=== PATIENT | male | born 1980 | race Two or more races ===

== ENCOUNTER 2019-08-05 16:49 | Emergency (ER) | payer SELFPAY ==
[~2019-08-05] VITALS: Ht 167.6 cm; Wt 70.0 kg
[2019-08-05] MEDS ORDERED: ONDANSETRON 2MG/ML, 2ML ONE (17:41)
[2019-08-05] MEDS ORDERED: MORPHINE SULFATE 4 MG/ML, 1ML ONE (17:41)
[2019-08-05] MEDS ORDERED: MORPHINE SULFATE 4 MG/ML, 1ML IVPush PRN (18:00)
[2019-08-05] MEDS ORDERED: SODIUM CHLORIDE FLUSH 10ML SYR IVF ONE (18:00)
[2019-08-05] MEDS ORDERED: SODIUM CHLORIDE 0.9% 1,000ML IVBOLUS ONE (18:00)
[2019-08-05] MEDS ORDERED: ONDANSETRON 2MG/ML, 2ML IVPush ONE (18:00)
[2019-08-05 18:11] LABS: BASOPHILS # (AUTO) 0.04 x10^3/uL (0-0.1); BASOPHILS % (AUTO) 0 % (0-1); EOSINOPHILS # (AUTO) 0.06 x10^3/uL (0-0.4); EOSINOPHILS % (AUTO) 0 % (1-7); LYMPHOCYTES # (AUTO) 1.33 x10^3/uL (1-3.4); LYMPHOCYTES % (AUTO) 9 % (22-44); MD NO; MEAN CORPUSCULAR HEMOGLOBIN 31.2 pg (27.5-34.5); MEAN PLATELET VOLUME 7.8 fL (7.4-10.4); MONOCYTES # (AUTO) 0.91 x10^3/uL (0.2-0.8); MONOCYTES % (AUTO) 6 % (2-9); NEUTROPHILS # (AUTO) 12.53 x10^3/uL (1.8-6.8); NEUTROPHILS % (AUTO) 84 % (42-75); PLATELET COUNT 263 x10^3/uL (130-400); RED BLOOD COUNT 5.01 x10^6/uL (4.38-5.82)
--- NOTE | 2019-08-05 18:15 | NUR ---
PIV EST MEDS PER [facility] SENT TO RAD.
[2019-08-05 18:26] LABS: ALANINE AMINOTRANSFERASE 49 U/L (12-78); ALBUMIN 3.9 g/dL (3.4-5.0); ANION GAP 9 mmol/L (5-15); CALCIUM 8.7 mg/dL (8.5-10.1); CHLORIDE 107 mmol/L (98-107); CREATININE 0.82 mg/dL (0.7-1.3)
[2019-08-05 18:30] LABS: ALKALINE PHOSPHATASE 78 U/L (45-117); BILIRUBIN,TOTAL 0.5 mg/dL (0.2-1.0); TOTAL PROTEIN 7.5 g/dL (6.4-8.2)
[2019-08-05] MEDS ORDERED: PROPOFOL 10 MG/ML, 20ML IVPush ONE (18:30)
[2019-08-05] MEDS ORDERED: PLEASE ENTER ALLERGIES MC SCH (18:30)
--- NOTE | 2019-08-05 18:33 | NUR ---
REPORT TO [facility]ORGAN. PT MOVED TO TR2.
[2019-08-05] MEDS ORDERED: PROPOFOL 10 MG/ML, 20ML ONE (18:50)
[2019-08-05] MEDS ORDERED: OMNIPAQUE 350 MG/ML, 100ML BOTTLE ONE (19:00)
--- NOTE | 2019-08-05 19:01 | NUR ---
sbar to john rn at bedside. dr estes at bedside. setup for rt shoulder reduction. see paper charting
--- NOTE | 2019-08-05 19:05 | NUR ---
PT PROCEDURE TIME OUT PERFORMED.
--- NOTE | 2019-08-05 19:08 | NUR ---
PROPOFOL PUSH TOTAL 130CC.
--- NOTE | 2019-08-05 19:10 | NUR ---
PT R SHOULDER REDUCED
--- NOTE | 2019-08-05 19:15 | NUR ---
PT A/OX 4, AWAKE AND ALERT WITH PT FAMILY AT PT SIDE
--- NOTE | 2019-08-05 20:21 | NUR ---
PT A/O X WITH NO COMPLAINTS OTHER THAN "HE IS READY TO LEAVE". PT FAMILY AT PT SIDE. PT AMBULATES WITH OUT DIFFICULTY AND IS STABLE.
[2019-08-05 21:08] VITALS: BP 138/78
== END 2019-08-05 21:11 | disposition home or self-care (01) ==
LOC: ED 20:50
DX: S62.502A Fracture of unspecified phalanx of left thumb, initial encounter for closed fracture (principal); S62.25 Fracture of neck of first metacarpal bone; S62.338A Displaced fracture of neck of other metacarpal bone, initial encounter for closed fracture; S62.393A Other fracture of third metacarpal bone, left hand, initial encounter for closed fracture; S43.004A Unspecified dislocation of right shoulder joint, initial encounter; V29.9XXA Motorcycle rider (driver) (passenger) injured in unspecified traffic accident, initial encounter; Y93.89 Activity, other specified; Y92.488 Other paved roadways as the place of occurrence of the external cause; Y99.8 Other external cause status
CPT/HCPCS: 23650; 29125; 36415; 71260; 73030; 73110; 73130; 80053; 85025; 96374; 96375; 99285; J2270; J2405; J2704; J7030; Q9967